=== PATIENT | female | born 1985 | race Caucasian/White ===

== ENCOUNTER → 2025-09-01 13:19 | Outpatient (REF) | payer OTHER, SELFPAY | LOC: HWRAD 13:19 | PROVIDERS: ATTENDING PHYSICIAN Nurse Practitioner Adult Health | DX: R79.89 Other specified abnormal findings of blood chemistry (principal); L68.0 Hirsutism | CPT/HCPCS: 76830; 76856 ==

== ENCOUNTER → 2025-09-26 14:07 | Outpatient (REF) | payer OTHER, SELFPAY | LOC: DHSLP 14:07 | PROVIDERS: ATTENDING PHYSICIAN Internal Medicine Critical Care Medicine; FAMILY PHYSICIAN Nurse Practitioner Adult Health | DX: G47.19 Other hypersomnia (principal); R06.83 Snoring | CPT/HCPCS: 95800 ==